=== PATIENT | female | born 1990 | race Two or more races ===

== ENCOUNTER 2019-10-12 00:05 | Emergency (ER) | payer OTHER ==
[~2019-10-12] VITALS: Ht 170.2 cm; Wt 103.2 kg
[2019-10-12 01:54] VITALS: BP 120/74
== END 2019-10-12 02:04 | disposition home or self-care (01) ==
LOC: ED 01:11
DX: B34.9 Viral infection, unspecified (principal); R09.81 Nasal congestion; R05 Cough
CPT/HCPCS: 71046; 99283